=== PATIENT | male | born 1970 | race Caucasian/White ===

== ENCOUNTER 2019-04-27 15:14 | Emergency (ER) | payer MEDICAID ==
[~2019-04-27] VITALS: Ht 182.9 cm; Wt 78.5 kg
[2019-04-27 15:37] VITALS: Ht 182.9 cm; Wt 78.5 kg
[2019-04-27 17:06] LABS: CALCIUM 8.9 mg/dL (8.5-10.1); CARBON DIOXIDE 25.2 mmol/L (21-32); CHLORIDE SERUM 102 mmol/L (98-107); CREATININE SERUM 1.2 mg/dL (0.7-1.3); GFR1 > 60 mL/min; GLUCOSE SERUM 99 mg/dL (74-106); POTASSIUM SERUM 3.8 mmol/L (3.5-5.1); SODIUM SERUM 137 mmol/L (136-145)
[2019-04-27 17:08] LABS: BASOPHIL % 0.2 % (0-2); PLATELET COUNT 228 x10^3mcL (130-400)
[2019-04-27 17:17] LABS: ALBUMIN 3.8 g/dL (3.4-5.0); ALKALINE PHOSPHATASE 59 U/L (46-116); ALT/SGPT 60 U/L (16-63); AST/SGOT 41 U/L (15-37); BILIRUBIN TOTAL 0.2 mg/dL (0.20-1.00); LIPASE 200 IU/L (73-393); TOTAL PROTEIN, SERUM 8.1 g/dL (6.4-8.2)
[2019-04-27 20:23] VITALS: BP 111/74
== END 2019-04-27 20:23 | disposition home or self-care (01) ==
LOC: ED 15:14
PROVIDERS: Emergency Medicine
DX: K52.9 Noninfective gastroenteritis and colitis, unspecified (principal); E86.0 Dehydration
CPT/HCPCS: 87046; 87046-59; J2270; J2405; J7030

== ENCOUNTER 2019-06-23 15:02 | Emergency (ER) | payer MEDICAID ==
[~2019-06-23] VITALS: Ht 185.4 cm; Wt 82.1 kg
[2019-06-23 15:09] VITALS: Ht 185.4 cm; Wt 82.1 kg
[2019-06-23 17:12] VITALS: BP 125/33
== END 2019-06-23 17:12 | disposition home or self-care (01) ==
LOC: ED 15:02
DX: S51.811A Laceration without foreign body of right forearm, initial encounter (principal); W45.8XXA Other foreign body or object entering through skin, initial encounter; Y93.89 Activity, other specified; Y92.89 Other specified places as the place of occurrence of the external cause; Y99.8 Other external cause status
CPT/HCPCS: 90715; J2001

== ENCOUNTER 2019-06-30 15:30 | Emergency (ER) | payer MEDICAID ==
[~2019-06-30] VITALS: Ht 182.9 cm; Wt 76.2 kg
[2019-06-30 15:41] VITALS: BP 108/64; Ht 182.9 cm; Wt 76.2 kg
== END 2019-06-30 16:42 | disposition home or self-care (01) ==
LOC: ED 15:30
DX: L03.113 Cellulitis of right upper limb (principal); S51.811D Laceration without foreign body of right forearm, subsequent encounter; W45.8XXD Other foreign body or object entering through skin, subsequent encounter
CPT/HCPCS: J0696; Q0092